=== PATIENT | female | born 1960 | race Caucasian/White ===

== ENCOUNTER 2020-10-24 09:55 | Outpatient (CLI) | payer OTHER, SELFPAY ==
--- NOTE | 2020-10-24 11:30 | NEURO_ITS ---
Impression: # Complains of numbness of hands. # Right Carpal Tunnel Syndrome, sensory more than motor. # No ulnar neuropathy. # Normal needle/EMG exam. Nerve Conduction Studies Anti Sensory Summary Table Stim Site NR Peak (ms) P-T Amp (?V) Site1 Site2 Delta-P (ms) Dist (cm) Dustin (m/s) Left Median Anti Sensory (2-3nd Digit) Wrist 3.7 74.2 Wrist 2-3nd Digit 3.7 14.0 38 Wrist 3.9 62.3 Wrist 2-3nd Digit 3.7 14.0 38 Right Median Anti Sensory (2-3nd Digit) Wrist 4.8 25.3 Wrist 2-3nd Digit 4.8 14.0 29 Wrist 5.3 38.8 Wrist 2-3nd Digit 4.8 14.0 29 Left Radial Anti Sensory (Base 1st Digit) Wrist 1.9 40.3 Wrist Base 1st Digit 1.9 0.0 Right Radial Anti Sensory (Base 1st Digit) Wrist 2.1 22.5 Wrist Base 1st Digit 2.1 0.0 Left Ulnar Anti Sensory (5th Digit) Wrist 2.4 62.3 Wrist 5th Digit 2.4 14.0 58 Right Ulnar Anti Sensory (5th Digit) Wrist 2.3 71.5 Wrist 5th Digit 2.3 14.0 61 Motor Summary Table Stim Site NR Onset (ms) O-P Amp (mV) Site1 Site2 Delta-0 (ms) Dist (cm) Dustin (m/s) Left Median Motor (Abd Poll Brev) Wrist 3.3 3.2 Elbow Wrist 5.2 26.0 50 Elbow 8.5 2.4 Right Median Motor (Abd Poll Brev) Wrist 3.5 3.3 Elbow Wrist 4.2 26.0 62 Elbow 7.7 4.7 Left Ulnar Motor (Abd Dig Minimi) Wrist 2.3 8.4 A Elbow Wrist 4.7 27.0 57 A Elbow 7.0 7.2 Right Ulnar Motor (Abd Dig Minimi) Wrist 2.3 9.7 A Elbow Wrist 4.3 25.0 58 A Elbow 6.6 9.0 F Wave Studies NR F-Lat (ms) L-R F-Lat (ms) Left Median (Mrkrs) (Abd Poll Brev) 28.31 0.65 Right Median (Mrkrs) (Abd Poll Brev) 27.66 0.65 Left Ulnar (Mrkrs) (Abd Dig Min) 26.78 0.10 Right Ulnar (Mrkrs) (Abd Dig Min) 26.88 0.10 EMG Side Muscle Nerve Root Ins Act Fibs Amp Dur Recrt Comment Right 1stDorInt Ulnar C8-T1 Nml Nml Nml Nml Nml Right Ext Indicis Radial (Post Int) C7-8 Nml Nml Nml Nml Nml Right Ext Digitorum Radial (Post Int) C7-8 Nml Nml Nml Nml Nml Right BrachioRad Radial C5-6 Nml Nml Nml Nml Nml Right PronatorTeres Median C6-7 Nml Nml Nml Nml Nml Right Abd Poll Brev Median C8-T1 Nml Nml Nml Nml Nml Left 1stDorInt Ulnar C8-T1 Nml Nml Nml Nml Nml Left Ext Indicis Radial (Post Int) C7-8 Nml Nml Nml Nml Nml Left Ext Digitorum Radial (Post Int) C7-8 Nml Nml Nml Nml Nml Left BrachioRad Radial C5-6 Nml Nml Nml Nml Nml Left PronatorTeres Median C6-7 Nml Nml Nml Nml Nml Left Abd Poll Brev Median C8-T1 Nml Nml Nml Nml Nml Right ABD Dig Min Ulnar C8-T1 Nml Nml Nml Nml Nml Right Biceps Musculocut C5-6 Nml Nml Nml Nml Nml Right Brachialis Musculocut C5-6 Nml Nml Nml Nml Nml Right Triceps Radial C6-7-8 Nml Nml Nml Nml Nml Left ABD Dig Min Ulnar C8-T1 Nml Nml Nml Nml Nml Left Biceps Musculocut C5-6 Nml Nml Nml Nml Nml Left Brachialis Musculocut C5-6 Nml Nml Nml Nml Nml Left Triceps Radial C6-7-8 Nml Nml Nml Nml Nml MTDD
== END 2020-10-24 09:56 | disposition home or self-care (01) ==
PROVIDERS: PCP Family Medicine; Visit Provider Nurse Practitioner Family
DX: R20.2 Paresthesia of skin (principal); G56.01 Carpal tunnel syndrome, right upper limb
CPT/HCPCS: 95886; 95911

== ENCOUNTER 2021-06-13 11:16 | Outpatient (CLI) | payer OTHER, SELFPAY ==
--- NOTE | 2021-06-13 11:19 | ECG_ITS ---
Measurements Intervals [place] Rate: 63 P: 57 AL: 155 QRS: 61 QRSD: 85 T: 59 QT: 413 QTc: 423 Interpretive Statements SINUS RHYTHM BASELINE WANDER- II, III, AVF NORMAL ECG Electronically Signed On 06-13-2021 13:03:54 CDT by Orlando Ramírez D.O.
== END 2021-06-13 11:17 | disposition home or self-care (01) ==
LOC: CHSCARD 11:19
PROVIDERS: PCP Family Medicine; Visit Provider Nurse Practitioner Family
DX: Z01.818 Encounter for other preprocedural examination (principal)
CPT/HCPCS: 93005

== ENCOUNTER 2022-10-17 08:05 | Outpatient (CLI) | payer OTHER, SELFPAY ==
[2022-10-17 08:21] LABS: Hematocrit 41.2 % (35.0-49.0); Hemoglobin 13.4 g/dL (12.0-15.0); Mean Corpuscular HGB Conc 32.5 g/dL (32.0-36.0); Mean Corpuscular Hemoglobin 27.6 pg (27.0-31.0); Mean Corpuscular Volume 84.9 fL (78.0-102.0); Mean Platelet Volume 10.6 fl (9.2-11.8); Platelet Count Result 276 K/mm3 (150-420); Red Blood Count 4.85 M/mm3 (4.20-5.40); Red Cell Distribution Width 13.1 % (11.6-14.4); White Blood Count 9.9 K/mm3 (4.8-10.8)
[2022-10-17 08:26] LABS: Creatinine Urine 239.19 mg/dL (40-278); MALB Creatinine Ratio 11.3 mg/g (0-30); Microalbumin Urine Random 27.2 mg/L
[2022-10-17 09:24] LABS: Alanine Aminotransferase 32 U/L (14-59); Albumin Level 4.2 g/dL (3.4-5.0); Alkaline Phosphatase 96 U/L (46-116); Anion Gap 11 mmol/L (8-16); Aspartate Amino Transferase 23 U/L (15-37); Bilirubin,Total 0.4 mg/dL (0.00-1.00); Blood Urea Nitrogen 11 mg/dL (7-18); Calcium 8.9 mg/dL (8.5-10.1); Carbon Dioxide 27 mmol/L (21-32); Chloride 104 mmol/L (98-108); Cholesterol 136 mg/dL (0-200); Estimated Glomerular Filt Rate > 60; Glucose 186 mg/dL (70-99); HDL Direct 28 mg/dL (40-60); LDL Cholesterol Calculated 52 mg/dL (<130); Osmolality Calculated 298 mOsm/kg (285-295); Potassium 4.1 mmol/L (3.5-5.1); Sodium 142 mmol/L (136-145); Thyroid Stimulating Hormone 1.36 uIU/mL (0.36-3.74); Total Protein 7.2 g/dL (6.4-8.2); Triglycerides 278 mg/dL (0-150)
== END 2022-10-17 08:06 | disposition home or self-care (01) ==
PROVIDERS: PCP Nurse Practitioner Family; Visit Provider Nurse Practitioner Family
DX: E78.5 Hyperlipidemia, unspecified (principal); Z96.41 Presence of insulin pump (external) (internal); Z13.29 Encounter for screening for other suspected endocrine disorder; E11.9 Type 2 diabetes mellitus without complications; I10 Essential (primary) hypertension
CPT/HCPCS: 36415; 80053; 80061; 82043; 84443; 85027

== ENCOUNTER 2022-10-23 07:52 | Outpatient (CLI) | payer OTHER, SELFPAY ==
--- NOTE | ~2022-10-23 | MM_ITS ---
EXAMINATION: MM screening kath BI w devon HISTORY: Screening mammogram TECHNIQUE: Craniocaudal and mediolateral oblique 3-D tomosynthesis images were obtained and synthetic 2-D images were generated. CAD analysis was submitted and interpreted. COMPARISON: 02/09/2009, 03/27/2010 bilateral screening mammogram examinations BREAST PARENCHYMAL COMPOSITION: FINDINGS: Stable mild fibroglandular asymmetry in the lower inner quadrant of the right breast. Occas ional benign calcifications. There is no evidence of suspicious mass, calcification, or architectural distortion to suggest malignancy in either breast. There has been no suspicious interval change. IMPRESSION: 1. No mammographic evidence of malignancy. 2. Recommend routine screening mammography in one year. BI-RADS Category 2: Benign finding(s). Reviewed, dictated and finalized at location A. NG CARRIER
== END 2022-10-23 07:53 | disposition home or self-care (01) ==
LOC: CHSIMG 07:54
PROVIDERS: PCP Nurse Practitioner Family; Visit Provider Nurse Practitioner Family
DX: Z12.31 Encounter for screening mammogram for malignant neoplasm of breast (principal)
CPT/HCPCS: 77063; 77067

== ENCOUNTER 2022-12-31 07:48 | Outpatient (CLI) | payer OTHER, SELFPAY ==
--- NOTE | ~2022-12-31 | US_ITS ---
EXAMINATION: US abdomen complete DATE: 12/31/2022 08:21 INDICATION: Unspecified abdominal pain TECHNIQUE: Multiple grayscale and Doppler ultrasound images of the abdomen were obtained. COMPARISON: None available FINDINGS: The head and body of the pancreas are normal. The pancreatic tail is obscured by bowel gas. The liver demonstrates increased echogenicity, heterogenous echotexture, and decreased through trans mission. No surface nodularity. Normal hepatopetal flow in the main portal vein. The gallbladder is n ormal with no abnormal wall thickening, pericholecystic fluid or stones. The dilated common bile duct measures 10 mm. There was no sonographic Ni sign. The visualized portions of the aorta and infer ior vena cava are normal. The spleen is normal in appearance and measures 8.0 cm. The right kidney measures 10.8 x 3.5 x 4.4 cm . The left kidney measures 10.7 x 4.5 x 6.4 cm. The kidneys demonstrate normal parenchymal echogenici ty. There is no hydronephrosis. IMPRESSION: 1. Dilated common bile duct of unclear etiology. Stone or stricture are considerations however neithe r are visualized. Consider MRCP. 2. Diffuse hepatic steatosis. Reviewed, dictated and finalized at location B. IMPRESSION: 1. Dilated common bile duct of unclear etiology. Stone or stricture are conside rations however neither are visualized. Consider MRCP. 2. Diffuse hepatic steatosis.
== END 2022-12-31 07:49 | disposition home or self-care (01) ==
LOC: CHSIMG 07:49
PROVIDERS: PCP Family Medicine; Visit Provider Nurse Practitioner Family
DX: R10.9 Unspecified abdominal pain (principal); K76.0 Fatty (change of) liver, not elsewhere classified
CPT/HCPCS: 76700

== ENCOUNTER 2023-01-03 08:18 | Outpatient (CLI) | payer OTHER, SELFPAY ==
--- NOTE | ~2023-01-03 | MR_ITS ---
EXAMINATION: MR MRCP wo/w con/w 3D wo ind DATE: 01/03/2023 11:50 INDICATION: Dilated common bile duct. Nausea and vomiting. TECHNIQUE: Magnetic resonance imaging (MRI) of the abdomen was performed without and with 20 mL Multi Rema intravenous contrast. Sequences included coronal T2-weighted FS FSE, coronal T2-weighted FSE, a xial T1-weighted LAVA, coronal FS FIESTA, axial dual-echo T1-weighted SPGR, coronal lava-FLEX, sagitt al T2-weighted FSE, axial T2-weighted FSE, and axial DWI. Thick-slab T2-weighted FSE images were obta ined for magnetic resonance cholangiopancreatography (MRCP). Maximum intensity projection 3-D reconst ructions of the volumetric data were created by the technologist. Postcontrast sequences included cor onal LAVA-flex and time course of axial T1-weighted LAVA. COMPARISON: Ultrasound abdomen 12/31/2022 FINDINGS: ABDOMEN MRI: There is diffuse hepatic steatosis. There is a 5 mm cyst in the liver. The gallbladder, spleen, pancreas, adrenal glands, and kidneys are normal. There are no dilated loops of bowel. There are no pathologically enlarged lymph nodes. There is no free intraperitoneal fluid. ABDOMEN MRCP: The common duct is dilated to 10 mm. No choledocholithiasis. IMPRESSION: 1. Mildly dilated common duct. No choledocholithiasis. 2. Diffuse hepatic steatosis. Reviewed, dictated and finalized at location A.
== END 2023-01-03 08:19 | disposition home or self-care (01) ==
LOC: CHSIMG 08:20
PROVIDERS: PCP Family Medicine; Visit Provider Nurse Practitioner Family
DX: K83.8 Other specified diseases of biliary tract (principal); K76.0 Fatty (change of) liver, not elsewhere classified
CPT/HCPCS: 74183; 76376; A9577

== ENCOUNTER 2023-02-03 08:19 | Outpatient (CLI) | payer OTHER, SELFPAY ==
[2023-02-03 08:40] LABS: Hematocrit 39.3 % (35.0-49.0); Mean Corpuscular HGB Conc 33.1 g/dL (32.0-36.0); Mean Corpuscular Volume 84.7 fL (78.0-102.0); Mean Platelet Volume 10.8 fl (9.2-11.8); Platelet Count Result 246 K/mm3 (150-420); Red Blood Count 4.64 M/mm3 (4.20-5.40); Red Cell Distribution Width 13.2 % (11.6-14.4); White Blood Count 8.2 K/mm3 (4.8-10.8)
[2023-02-03 09:20] LABS: Alanine Aminotransferase 57 U/L (14-59); Albumin Level 3.9 g/dL (3.4-5.0); Alkaline Phosphatase 96 U/L (46-116); Amylase 26 U/L (25-115); Anion Gap 10 mmol/L (8-16); Aspartate Amino Transferase 44 U/L (15-37); Bilirubin,Total 0.4 mg/dL (0.00-1.00); Blood Urea Nitrogen 14 mg/dL (7-18); Calcium 9.2 mg/dL (8.5-10.1); Carbon Dioxide 26 mmol/L (21-32); Chloride 104 mmol/L (98-108); Estimated Glomerular Filt Rate > 60; Glucose 219 mg/dL (70-99); Lipase 47 U/L (16-77); Osmolality Calculated 297 mOsm/kg (285-295); Potassium 4.7 mmol/L (3.5-5.1); Sodium 140 mmol/L (136-145); Total Protein 6.8 g/dL (6.4-8.2)
[2023-02-07 10:02] LABS: Immunoglobulin A 83 mg/dL (47-310); TTG IGA AB <1.0 U/mL (<15.0)
== END 2023-02-03 08:20 | disposition home or self-care (01) ==
LOC: CHSLAB 08:22
PROVIDERS: PCP Family Medicine; Visit Provider Nurse Practitioner Family
DX: R11.2 Nausea with vomiting, unspecified (principal); K83.8 Other specified diseases of biliary tract; K76.0 Fatty (change of) liver, not elsewhere classified; R19.7 Diarrhea, unspecified
CPT/HCPCS: 36415; 80053; 82150; 82784; 83516; 83690; 83993; 85027; 87045; 87177; 87209; 87427; 87493

== ENCOUNTER 2023-02-16 07:43 | Outpatient (CLI) | payer OTHER, SELFPAY ==
--- NOTE | ~2023-02-16 | NM_ITS ---
EXAMINATION: NM hepatobiliary w pharm DATE: 02/16/2023 11:32 CDT INDICATION: Nausea with vomiting COMPARISON: Ultrasound dated 12/31/2022 TECHNIQUE: 5.4 millicuries Choletec was administered intravenously. Scintigraphic images of the abdo men were obtained for one hour. 1.3 mcg of cholecystokinin was then administered with additional 30 m inute imaging of the abdomen. Gallbladder ejection fraction was calculated by the technologist. FINDINGS: There is homogeneous tracer uptake by the liver. Common bile duct activity is seen at 5-10 minutes, and gallbladder activity by 5-10 minutes. There is radiotracer activity in the proximal sm all bowel loops by 10-15 minutes. Following administration of cholecystokinin, gallbladder ejection fraction is calculated to be 82. IMPRESSION: 1. Patent cystic duct and common bile duct. No scintigraphic evidence for acute cholecystitis. 2. Gallbladder ejection fraction at 82 (normal is 35% or greater). Reviewed, dictated and finalized at location [] IMPRESSION: 1. Patent cystic duct and common bile duct. No scintigraphic evidence for acu te cholecystitis. 2. Gallbladder ejection fraction at 82 (normal is 35% or greater).
== END 2023-02-16 07:44 | disposition home or self-care (01) ==
PROVIDERS: PCP Family Medicine; Visit Provider Nurse Practitioner Family
DX: R11.2 Nausea with vomiting, unspecified (principal); K83.8 Other specified diseases of biliary tract
CPT/HCPCS: 78227; A9537; J2805

== ENCOUNTER 2023-03-06 05:21 | Day surgery (SDC) | payer OTHER, SELFPAY ==
[2023-02-20 10:09] VITALS: BMI 26.3
[2023-03-06 10:23] VITALS: BP 139/75; PULSE 80; RESP 16; TEMP 36.3; O2SAT 99; BMI 25.5
[2023-03-06 10:30] LABS: Glucose Point of Care 169 mg/dl (65-105)
[2023-03-06] MEDS: LACTATED RINGERS 1,000 ML 150 ML IV CONT (10:35)
--- NOTE | 2023-03-06 10:49 | WPDANESEPPF ---
Anes - Initial Pre Proc Eval Procedure: Operation Date: 03/06/23 11:15 Proposed Procedures p Colonoscopy - Terry Rosado MD Date/Time: 03/06/23 10:49 Surgeon: Terry Rosado MD Pre Op Diagnosis: change in bowel habits, diarrhea Patient Data Age: 62 Gender: F Height: 1.6 m Weight: 65.5 kg Last Vital Signs Temp 97.3 F L 03/06/23 10:23 Pulse 80 03/06/23 10:23 Resp 16 03/06/23 10:23 BP 139/75 03/06/23 10:23 Pulse Ox 99 03/06/23 10:23 O2 Del Method Room Air 03/06/23 10:23 Allergies Allergy/AdvReac Type Severity Reaction Status Date / Time No Known Allergies Allergy Verified 03/06/23 10:22 Home Medications Medication Instructions Recorded Confirmed Type aspirin 81 mg tablet,delayed 81 mg PO DAILY 07/14/19 03/06/23 History release (Adult Low Dose Aspirin) escitalopram oxalate 10 mg tablet 10 mg PO DAILY #90 tabs 12/19/22 03/06/23 Rx (Lexapro) lisinopril 20 mg tablet 20 mg PO DAILY #90 tabs 12/19/22 03/06/23 Rx blood-glucose meter,continuous #1 ea 12/26/22 03/06/23 Rx (Dexcom G7 Drill Operator) blood-glucose sensor (Dexcom G7 #1 ea 12/26/22 03/06/23 Rx Sensor device) ubidecarenone-omega 3-vit E 25 1 cap PO DAILY 01/29/23 03/06/23 History mg-150 (90-60) mg-200 unit capsule (Co J-49-Lviawrs E-Fish Oil) atorvastatin 40 mg tablet 80 mg PO DAILY #60 tabs 01/30/23 03/06/23 Rx metformin 500 mg tablet,extended 500 mg PO BID #60 tabs 01/30/23 03/06/23 Rx release 24 hr semaglutide 1 mg/dose (4 mg/3 mL) 1 mg (0.75 mL) subcut WEEKLY #3 mL 02/12/23 03/06/23 Rx subcutaneous pen injector (Ozempic) [id number] See Rx Instructions PO .COMPLEX 02/16/23 03/06/23 Rx 36,000-114,000-180,000 unit #240 caps capsule,delay rel (Creon) Laboratory Tests 03/06/23 10:27 POC Capillary Glucose 169 H mg/dl (65-105) Patient hx anesthesia problems: none Family hx anesthesia problems: none Results Review: All pre-operative results and documents have been reviewed as part of the pre-operative evaluation. [facility]LY [facility], [facility] Past Medical History Medical History (Updated 01/29/23 @ 08:59 by ANGELA Pop) Abnormal MRI, shoulder Carpal tunnel syndrome Diarrhea Hemoglobin A1c greater than 9.0% A1C 9.0 on 07/03/20 Liver cyst Nausea and vomiting Surgical History Surgical History H/O rotator cuff surgery Family History Family History Mother Family history of lung cancer Father Acute myocardial infarction Sibling Diabetes mellitus Hypertension Other Family history of hypercholesterolemia Social History Social History Smoking status: Never smoker Second hand tobacco smoke exposure: Yes Alcohol intake: current Drinks per week: 0 Alcohol use details: rarely Substance use: never Substance use type: does not use Lack of Transportation: YES Lack of Food: Never True Current Housing: I Have Housing Concerned About Future Housing: No Difficulty Paying Gas/Electric Bills: No Difficulty Paying for Meds: No Currently Unemployed: No Education: Associate Degree Difficulty w/ Childcare or Family Care: No Living arrangements: with family Occupation/Education: occupation Additional occupation/education comments: Pt [employer] Gender identity (if verbalized by the patient): Female Sexual Orientation (if Verbalized by the Patient): Straight or Heterosexual Spiritual care concerns: No Anes - Eval Final PreProcedure Day of Procedure 03/06/23 10:49 Patient weight: normal Heart: regular rate and rhythm Lungs: clear to auscultation Airway: Mallampati scale class II Neurological: alert and oriented Last oral intake: >/= 8 hours ASA classification: III Emergent: no Anesthetic plan: proceed An
--- NOTE | 2023-03-06 11:17 | PM.HPGS ---
History of Present Illness History of Present Illness Consent: Risks, benefits, and alternatives have been discussed and questions answered. Patient agrees to proceed with procedure. Chief complaint: change in bowel habits, History of colon polyp. Narrative: Nandini Yanes is a 62 year old female Presents for colonoscopy. Patient reports intermittent diarrhea that will typically start shortly after eating. She does not know any specific foods that cause this. Diarrhea typically is short lived. She denies any bleeding. She has had intermittent right upper quadrant abdominal pain. Etiology unclear. Recent workup unremarkable. Endoscopic ultrasound revealed mildly dilated common bile duct which was attributed to papillary stenosis. She apparently had a benign liver cyst. Patient reports she previously had a colon polyp 5 years ago and presents today for screening colonoscopy. Review of Systems Review of Systems: Review of systems noncontributory. [facility] Past Medical History Medical History (Updated 03/06/23 @ 11:20 by Terry Rosado MD) Abnormal MRI, shoulder Carpal tunnel syndrome Diarrhea Hemoglobin A1c greater than 9.0% A1C 9.0 on 07/03/20 Liver cyst Nausea and vomiting Surgical History Surgical History H/O rotator cuff surgery Family History Family History Mother Family history of lung cancer Father Acute myocardial infarction Sibling Diabetes mellitus Hypertension Other Family history of hypercholesterolemia Social History Social History Smoking status: Never smoker Second hand tobacco smoke exposure: Yes Alcohol intake: current Drinks per week: 0 Alcohol use details: rarely Substance use: never Substance use type: does not use Lack of Transportation: YES Lack of Food: Never True Current Housing: I Have Housing Concerned About Future Housing: No Difficulty Paying Gas/Electric Bills: No Difficulty Paying for Meds: No Currently Unemployed: No Education: Associate Degree Difficulty w/ Childcare or Family Care: No Living arrangements: with family Occupation/Education: occupation Additional occupation/education comments: Pt access [employer] Gender identity (if verbalized by the patient): Female Sexual Orientation (if Verbalized by the Patient): Straight or Heterosexual Spiritual care concerns: No Meds Home Medications and Allergies Home Medications Medication Instructions Recorded Confirmed Type aspirin 81 mg tablet,delayed 81 mg PO DAILY 07/14/19 03/06/23 History release (Adult Low Dose Aspirin) escitalopram oxalate 10 mg tablet 10 mg PO DAILY #90 tabs 12/19/22 03/06/23 Rx (Lexapro) lisinopril 20 mg tablet 20 mg PO DAILY #90 tabs 12/19/22 03/06/23 Rx blood-glucose meter,continuous #1 ea 12/26/22 03/06/23 Rx (Dexcom G7 Picc Nurse) blood-glucose sensor (Dexcom G7 #1 ea 12/26/22 03/06/23 Rx Sensor device) ubidecarenone-omega 3-vit E 25 1 cap PO DAILY 01/29/23 03/06/23 History mg-150 (90-60) mg-200 unit capsule (Co C-50-Ykioezj E-Fish Oil) atorvastatin 40 mg tablet 80 mg PO DAILY #60 tabs 01/30/23 03/06/23 Rx metformin 500 mg tablet,extended 500 mg PO BID #60 tabs 01/30/23 03/06/23 Rx release 24 hr semaglutide 1 mg/dose (4 mg/3 mL) 1 mg (0.75 mL) subcut WEEKLY #3 mL 02/12/23 03/06/23 Rx subcutaneous pen injector (Ozempic) [id number] See Rx Instructions PO .COMPLEX 02/16/23 03/06/23 Rx 36,000-114,000-180,000 unit #240 caps capsule,delay rel (Creon) Allergies Allergy/AdvReac Type Severity Reaction Status Date / Time No Known Allergies Allergy Verified 03/06/23 10:22 Vital Signs Vital Signs - 24 hr 03/06/23 10:23 Temperature 97.3 F L Pulse Rate 80 Respiratory Rate
[2023-03-06 11:41] VITALS: BP 146/71; PULSE 81; RESP 16; O2SAT 98
[2023-03-06 11:51] VITALS: BP 145/74; PULSE 75; RESP 22; O2SAT 99
[2023-03-06 12:01] VITALS: BP 133/67; PULSE 71; RESP 19; O2SAT 100
== END 2023-03-06 12:10 | disposition home or self-care (01) ==
PROVIDERS: PCP Family Medicine; Visit Provider Internal Medicine Gastroenterology
PROC: 0DJD8ZZ Inspection of Lower Intestinal Tract, Via Natural or Artificial Opening Endoscopic (ICD-10-PCS; CPT 45378; principal; 2023-03-06 11:15)
DX: R19.4 Change in bowel habit (principal); Z86.010 Personal history of colon polyps; K64.8 Other hemorrhoids
CPT/HCPCS: 45380; 82948; 88305; J2704; J7120

== ENCOUNTER 2023-12-24 07:20 | Outpatient (CLI) | payer OTHER, SELFPAY ==
--- NOTE | ~2023-12-24 | MM_ITS ---
EXAMINATION: MM screening kath BI w devon HISTORY: Screening TECHNIQUE: Craniocaudal and mediolateral oblique 3-D tomosynthesis images were obtained and synthetic 2-D images were generated. CAD analysis was submitted and interpreted. COMPARISON: 05/24/2013 BREAST PARENCHYMAL COMPOSITION: Not dense: There are scattered areas of fibroglandular density. FINDINGS: There is no evidence of suspicious mass, calcification, or architectural distortion to sugg est malignancy in either breast. There has been no suspicious interval change. IMPRESSION: 1. No mammographic evidence of malignancy. 2. Recommend routine screening mammography in one year. BI-RADS Category 1: Negative Reviewed, dictated and finalized at location B.
== END 2023-12-24 07:21 | disposition home or self-care (01) ==
PROVIDERS: PCP Family Medicine; Visit Provider Obstetrics & Gynecology
DX: Z12.31 Encounter for screening mammogram for malignant neoplasm of breast (principal)
CPT/HCPCS: 77063; 77067

== ENCOUNTER 2024-04-11 08:17 | Outpatient (CLI) | payer OTHER, SELFPAY ==
[2024-04-11 08:34] LABS: Hematocrit 42.6 % (35.0-49.0); Hemoglobin 14.1 g/dL (12.0-15.0); Mean Corpuscular HGB Conc 33.1 g/dL (32-36); Mean Corpuscular Hemoglobin 27.6 pg (27.0-31.0); Mean Corpuscular Volume 83.4 fL (78.0-102.0); Mean Platelet Volume 11.1 fl (9.2-11.8); Platelet Count Result 250 K/mm3 (150-420); Red Blood Count 5.11 M/mm3 (4.20-5.40); Red Cell Distribution Width 13.1 % (11.6-14.4); White Blood Count 7.8 K/mm3 (4.8-10.8)
[2024-04-12 17:19] LABS: Alanine Aminotransferase 26 U/L (14-59); Albumin Level 4.1 g/dL (3.4-5.0); Alkaline Phosphatase 106 U/L (46-116); Anion Gap 13 mmol/L (4-12); Aspartate Amino Transferase 41 U/L (15-37); Bilirubin,Total 0.5 mg/dL (0.00-1.00); Blood Urea Nitrogen 18 mg/dL (7-18); Calcium 9.6 mg/dL (8.5-10.1); Carbon Dioxide 25 mmol/L (21-32); Chloride 99 mmol/L (98-108); Cholesterol 172 mg/dL (0-200); Estimated Glomerular Filt Rate > 60; Glucose 300 mg/dL (70-99); HDL Direct 28 mg/dL (40-60); Osmolality Calculated 296 mOsm/kg (285-295); Potassium 4.3 mmol/L (3.5-5.1); Sodium 137 mmol/L (136-145); Thyroid Stimulating Hormone 2.04 uIU/mL (0.36-3.74); Total Protein 7.2 g/dL (6.4-8.2)
[2024-04-12 17:21] LABS: LDL Cholesterol Calculated 37 mg/dL (<130); Triglycerides 535 mg/dL (0-150)
[2024-04-12 17:22] LABS: LDL Cholesterol Direct 58 mg/dL (0-130)
[2024-04-12 18:17] LABS: Creatinine Urine 173.89 mg/dL (40-278); MALB Creatinine Ratio 10.1 mg/g (0-30); Microalbumin Urine Random 17.7 mg/L
== END 2024-04-11 08:18 | disposition home or self-care (01) ==
LOC: CHSLAB 08:20
PROVIDERS: PCP Nurse Practitioner Family; Visit Provider Nurse Practitioner Family
DX: E11.9 Type 2 diabetes mellitus without complications (principal); Z96.41 Presence of insulin pump (external) (internal); I10 Essential (primary) hypertension; E78.5 Hyperlipidemia, unspecified; K76.0 Fatty (change of) liver, not elsewhere classified; Z13.29 Encounter for screening for other suspected endocrine disorder
CPT/HCPCS: 36415; 80053; 80061; 82043; 83721; 84443; 85027

== ENCOUNTER 2024-08-22 13:37 | Outpatient (CLI) | payer OTHER, SELFPAY ==
[2024-08-22 13:47] LABS: Add Urine Microscopic? NO; Appearance Urine Clear (Clear); Bilirubin Urine Negative (Negative); Blood Urine Negative (Negative); Color Urine Light Yellow (Yellow); Glucose Urine UA 3+ (Negative); Ketones Urine Negative (Negative); Leukocyte Esterase Ur Negative LEU/UL (Negative); Nitrate Urine Negative (Negative); Protein Urine Negative (Negative); Specific Grav Ur 1.025 (1.010-1.020); Urobilinogen Urine 0.2 mg/dL (0.2-1.0)
== END 2024-08-22 13:38 | disposition home or self-care (01) ==
LOC: CHSLAB 13:38
PROVIDERS: PCP Family Medicine
DX: R30.0 Dysuria (principal)
CPT/HCPCS: 81003

== ENCOUNTER 2024-09-12 10:20 | Emergency (ER) | payer OTHER, SELFPAY ==
--- NOTE | ~2024-09-12 | XR_ITS ---
EXAMINATION: XR chest 1V portable DATE: 09/12/2024 10:36 INDICATION: Cough. Fatigue. TECHNIQUE: A single frontal view of the chest was obtained. COMPARISON: Chest single view 01/03/2022 FINDINGS: There is no pneumonia, pleural effusion or pneumothorax. The heart size is normal. There is a suture anchor in right humeral head. IMPRESSION: 1. No acute cardiopulmonary disease. Reviewed, dictated and finalized at location A. E[employer]OU[employer]LISM
[2024-09-12 10:20] VITALS: BP 166/82; PULSE 79; RESP 20; TEMP 37.1; O2SAT 100
--- NOTE | 2024-09-12 10:25 | WPDEDEXPGENP ---
HPI - General Ped General Chief complaint: Upper Respiratory Infection Stated complaint: cough Time Seen by Provider: 09/12/24 10:24 Source: patient and family Mode of arrival: ambulatory Limitations: no limitations History of Present Illness HPI narrative: 64 years old white female with history of diabetes, hypertension, hyperlipidemia on baby aspirin once a day, came to the ED from home by private car complaining of coughing, ear aches, sore throat, body aches started 5 days ago. Patient report 1 of her grandkids were sick few days ago. Currently patient denying any fever or chills or shortness of breath. Patient does not smoke cigarettes. Drinks alcohol occasionally Related Data Home Medications ?Medication ?Instructions ?Recorded ?Confirmed ?Last Taken ?Type aspirin 81 mg tablet,delayed 81 mg PO DAILY 07/14/19 07/15/24 Unknown History release (Adult Low Dose Aspirin) ubidecarenone-omega 3-vit E 25 1 cap PO DAILY 01/29/23 07/15/24 Unknown History mg-150 (90-60) mg-200 unit capsule (Co F-02-Ndyoihf E-Fish Oil) Allergies Allergy/AdvReac Type Severity Reaction Status Date / Time No Known Allergies Allergy Verified 07/15/24 08:07 Pediatric Review of Systems All systems ED: reviewed and negative except as stated PMFSH Past Medical History Medical History LGSIL Pap smear of vagina Vaginal dryness RUQ pain Change in bowel habit Liver cyst Nausea and vomiting Diarrhea Dilated bile duct Abdominal pain Trapezius muscle strain Neck Pain Vaginal bleeding Pre-employment examination Post-op pain Pre-op testing Abnormal MRI, shoulder Right shoulder injury BMI 25.0-25.9,adult Carpal tunnel syndrome Hemoglobin A1c greater than 9.0% A1C 9.0 on 07/03/20 Pain in wrist Exposure to COVID-19 virus Abdominal pain Acute pain of right knee Surgical History Surgical History H/O gynecological procedure tubal ligation H/O rotator cuff surgery Family History Family History Mother Family history of lung cancer Father Acute myocardial infarction Sibling Diabetes mellitus Hypertension Other Family history of hypercholesterolemia Social History Social History Smoking status: Never smoker Second hand tobacco smoke exposure: Yes Alcohol intake: current Drinks per week: 0 Alcohol use details: rarely Substance use: never Substance use type: does not use Lack of Transportation: No Lack of Food: Never True Current Housing: I Have Housing Concerned About Future Housing: No Difficulty Paying Gas/Electric Bills: No Difficulty Paying for Meds: No Currently Unemployed: No Education: Associate Degree Difficulty w/ Childcare or Family Care: No Living arrangements: with family Occupation/Education: occupation Additional occupation/education comments: Pt access [employer] Gender identity (if verbalized by the patient): Female Sexual Orientation (if Verbalized by the Patient): Straight or Heterosexual Spiritual care concerns: No Pediatric Exam Narrative: Physical exam: General appearance: Well-developed, well-nourished Skin: Normal color Head: Normocephalic, nontraumatic Eyes: Clear conjunctiva ENT: Oropharynx normal, ears normal, nose normal Neck: Supple, nontender Chest and respiratory: Airway patent, no respiratory distress, no accessory muscle use Heart: Regular rate/rhythm Abdomen: Soft, nontender, no organomegaly, quiet bowel sounds Vascular: Normal peripheral pulses, normal capillary refill. Musculoskeletal: Normal range of motion, nontender back Neurologic: Alert and oriented ?3, RIGHT OF WAY CLEARER is normal as tested, no gross motor deficit Course Vital Signs Vital signs: Vital Signs Temperature 37.1 C 09/12/24 10:20 Pulse Rate 79 09/12/24 10:20 Respiratory Rate 20 09/12/24 10:20 Blood Pressure 166/82 H 09/12/24 10:20 Pulse Oximetry 09/12/24 10:20 Oxygen Delivery Room Air 09/12/24 10:20 Temperature 37.1 C 09/12/24 10:20 Pulse Rate 79 09/12/24 10:20 Respiratory Rate 20 09/12/24 10:20 Blood Pressure 166/82 H 09/12/24 10:20 Pulse Oximetry 100 09/12/24 10:20 Oxygen Delivery Room Air 09/12/24 10:20 Medical Decision Making [facility] Narrative Medical decision making narrative: patient presents with upper respiratory viral infection like symptoms Vital signs are stable Patient tested negative for COVID, flu and RSV Chest x-ray showed no acute abnormalities Upper respiratory viral infection is my concern. Differential Diagnosis Differential Diagnosis: As above Vital Signs Vital Signs: Vital Signs Temperature 37.1 C 09/12/24 10:20 Pulse Rate 79 09/12/24 10:20 Respiratory Rate 20 09/12/24 10:20 Blood Pressure 166/82 H 09/12/24 10:20 Pulse Oximetry 100 09/12/24 10:20 Oxygen Delivery Room Air 09/12/24 10:20 Temperature 37.1 C 09/12/24 10:20 Pulse Rate 79 09/12/24 10:20 Respiratory Rate 20 09/12/24 10:20 Blood Pressure 166/82 H 09/12/24 10:20 Pulse Oximetry 100 09/12/24 10:20 Oxygen Delivery Room Air 09/12/24 10:20 Lab Data Labs: Lab Results 09/12/24 Range/Units 10:26 Influenza A (RT-PCR) Negative (Negative) Influenza B (RT-PCR) Negative (Negative) RSV (RT-PCR) Negative (Negative) SARS-CoV-2 RNA (RT-PCR) Negative (Negative) Group A Strep (PCR) Not detected (Negative) Discharge Plan Discharge Clinical Impression: Upper respiratory infection, viral Patient Disposition: Home, Self-Care Condition: Stable Instructions: Upper Respiratory Infection (ED) Additional Instructions: Return if symptoms are worsening , call your family physician for appointment, take Tylenol as as needed for aches and pain, continue home medications. If you symptoms are not improving in 5 days contact your family doctor for possible a course of antibiotic Patient Language: Yakut Prescriptions: New benzonatate 200 mg capsule 200 mg PO TID Qty: 30 0RF ipratropium bromide 42 mcg (0.06 %) spray,non-aerosol 2 spray intranasal TID 7 Days Qty: 15 0RF Rx Instructions: administer into each nostril fluticasone propionate [Flonase Allergy Relief] 50 mcg/actuation spray,suspension 2 spray intranasal DAILY Qty: 16 0RF Rx Instructions: administer into each nostril No Action aspirin [Adult Low Dose Aspirin] 81 mg tablet,delayed release (DR/EC) 81 mg PO DAILY Co M-34-Jlginuv E-Fish Oil 25-150-200 mg-mg-unit capsule 1 cap PO DAILY omeprazole 20 mg capsule,delayed release(DR/EC) 20 mg PO DAILY 30 Days Qty: 30 2RF estradiol 0.01 % (0.1 mg/gram) cream 1 g vaginal 2XW Qty: 42.5 6RF Rx Instructions: apply 1 gram every other day for 2 weeks, then continue using twice weekly thereafter. lisinopril 20 mg tablet 20 mg PO DAILY Qty: 90 3RF (DME) Dexcom G7 Bonded Structures Repairer Misc See Rx Instructions .Route Qty: 1 0RF Rx Instructions: As directed (DME) Dexcom G7 Sensor Device See Rx Instructions .Route Qty: 1 0RF Rx Instructions: As directed atorvastatin 80 mg tablet 80 mg PO QHS Qty: 90 3RF cyclobenzaprine 10 mg tablet 10 mg PO .hs PRN (Reason: muscle spasm) Qty: 14 0RF gabapentin 300 mg capsule 300 mg PO QHS Qty: 60 2RF metformin 500 mg tablet extended release 24 hr 500 mg PO BID Qty: 180 1RF Jardiance 25 mg tablet 25 mg PO DAILY Qty: 90 4RF lidocaine 5 % adhesive patch,medicated 1 patch topical DAILY Qty: 30 3RF Rx Instructions: leave on most painful area for up to 12 hrs escitalopram oxalate 10 mg tablet See Rx Instructions .ROUTE .COMPLEX Qty: 90 0RF Dose Instruction: TAKE ONE TABLET BY MOUTH DAILY Rx Instructions: TAKE ONE TABLET BY MOUTH DAILY icosapent ethyl [Vascepa] 1 gram capsule 2 g PO BID Qty: 360 0RF Ozempic 2 mg/dose (8 mg/3 mL) pen injector 2 mg subcut WEEKLY Qty: 3 2RF Follow-up/Referrals: Christopher Ridley MD [Primary Care Provider] - Stand Alone Forms: Work/School Release IP
[2024-09-12 11:10] LABS: Strep Group A RT-PCR NOT DETECTED (Negative)
[2024-09-12 11:15] LABS: Influenza A QL RT-PCR Negative (Negative); Influenza B QL RT-PCR Negative (Negative); RSV RNA, RT-PCR Negative (Negative); SARS-CoV-2 RNA PCR Negative (Negative)
[2024-09-12 11:27] VITALS: BP 117/82; PULSE 82; RESP 20; TEMP 36.8; O2SAT 98
== END 2024-09-12 11:28 | disposition home or self-care (01) ==
LOC: CHSED 11:02
PROVIDERS: Emergency Provider Emergency Medicine; PCP Family Medicine
DX: J06.9 Acute upper respiratory infection, unspecified (principal); E11.9 Type 2 diabetes mellitus without complications; I10 Essential (primary) hypertension; E78.5 Hyperlipidemia, unspecified; Z79.82 Long term (current) use of aspirin; Z20.822 Contact with and (suspected) exposure to COVID-19
CPT/HCPCS: 71045; 87637; 87651; 99283

== ENCOUNTER 2024-12-29 07:55 | Outpatient (CLI) | payer OTHER, SELFPAY ==
--- NOTE | ~2024-12-29 | MM_ITS ---
EXAMINATION: MM screening kath BI w devon HISTORY: Screening TECHNIQUE: Craniocaudal and mediolateral oblique 3-D tomosynthesis images were obtained and synthetic 2-D images were generated. CAD analysis was submitted and interpreted. COMPARISON: Comparison to multiple prior studies sequentially, with oldest reviewed study dated 10/23. BREAST PARENCHYMAL COMPOSITION: Not dense: There are scattered areas of fibroglandular density. FINDINGS: There is no evidence of suspicious mass, calcification, or architectural distortion to sugg est malignancy in either breast. There has been no suspicious interval change. IMPRESSION: 1. No mammographic evidence of malignancy. 2. Recommend routine screening mammography in one year. BI-RADS Category 1: Negative Reviewed, dictated and finalized at location A.
== END 2024-12-29 07:56 | disposition home or self-care (01) ==
LOC: CHSIMG 07:56
PROVIDERS: PCP Family Medicine; Visit Provider Nurse Practitioner Family
DX: Z12.31 Encounter for screening mammogram for malignant neoplasm of breast (principal)
CPT/HCPCS: 77063; 77067

== ENCOUNTER 2025-04-06 10:15 | Emergency (ER) | payer OTHER, SELFPAY ==
--- NOTE | ~2025-04-06 | XR_ITS ---
HISTORY: First metatarsophalangeal joint PAIN /gout/NO TRAUMA COMPARISON: None TECHNIQUE: FINDINGS: No acute fracture or dislocation is appreciated. Degenerative changes noted within the first metatarsophalangeal joint space with joint space narrowin g and sclerosis. The base of the fifth metatarsal is intact. Small calcaneal spur is noted. Ossification of the insertion of the Achilles tendon. IMPRESSION: Joint space narrowing and sclerosis within the first metatarsophalangeal joint space. Degenerative disease, without acute fracture. Reviewed, dictated and finalized at location A. IMPRESSION: Joint space narrowing and sclerosis within the first metatarsophal angeal joint space. Degenerative disease, without acute fracture.
[2025-04-06 10:16] VITALS: BP 137/82; PULSE 86; RESP 16; TEMP 36.6; O2SAT 100
--- NOTE | 2025-04-06 10:27 | ED_ITS ---
HPI - Extremity Injury (Lower) General Chief Complaint: Extremity Injury, Lower Stated Complaint: rt. foot pain Time Seen by Provider: 04/06/25 10:26 Source: patient Mode of arrival: ambulatory Limitations: no limitations History of Present Illness HPI Narrative: 64 years old white female came with pain at the bottom and sides of the metatarsophalangeal joint of the big toe started 2 days ago, getting worse, can not tolerate any touch to that area Or any movement of that joint. Patient denies any fever, chills, nausea, vomiting or any trauma or any new issues. History of diabetes hypertension hyperlipidemia. Related Data Home Medications ?Medication ?Instructions ?Recorded ?Confirmed ?Last Taken ?Type aspirin 81 mg tablet,delayed 81 mg PO DAILY 07/14/19 02/20/25 Unknown History release (Adult Low Dose Aspirin) ubidecarenone-omega 3-vit E 25 1 cap PO DAILY 01/29/23 02/20/25 Unknown History mg-150 (90-60) mg-200 unit capsule (Co L-69-Ysxvify E-Fish Oil) Allergies Allergy/AdvReac Type Severity Reaction Status Date / Time No Known Allergies Allergy Verified 04/06/25 10:18 Review of Systems Review of Systems: All systems reviewed & are unremarkable except as noted in HPI and below PMFSH Past Medical History Medical History Type 2 diabetes mellitus without complication, with snf current use of insulin pump LGSIL Pap smear of vagina Vaginal dryness RUQ pain Change in bowel habit Liver cyst Nausea and vomiting Diarrhea Dilated bile duct Abdominal pain Trapezius muscle strain Neck Pain Vaginal bleeding Pre-employment examination Post-op pain Pre-op testing Abnormal MRI, shoulder Right shoulder injury BMI 25.0-25.9,adult Carpal tunnel syndrome Hemoglobin A1c greater than 9.0% A1C 9.0 on 07/03/20 Pain in wrist Exposure to COVID-19 virus Abdominal pain Acute pain of right knee Surgical History Surgical History H/O gynecological procedure tubal ligation H/O rotator cuff surgery Family History Family History Mother Family history of lung cancer Father Acute myocardial infarction Sibling Diabetes mellitus Hypertension Other Family history of hypercholesterolemia Social History Social History Smoking status: Never smoker Second hand tobacco smoke exposure: Yes Alcohol intake: current Drinks per week: 0 Alcohol use details: rarely Substance use: never Substance use type: does not use Do You Feel Safe in your Home?: Yes Lack of Transportation: No Lack of Food: Never True Current Housing: I Have Housing Concerned About Future Housing: No Difficulty Paying Gas/Electric Bills: No Difficulty Paying for Meds: No Currently Unemployed: No Education: Associate Degree Difficulty w/ Childcare or Family Care: No Living arrangements: with family Occupation/Education: occupation Additional occupation/education comments: Pt access [employer] Gender identity (if verbalized by the patient): Female Sexual Orientation (if Verbalized by the Patient): Straight or Heterosexual Spiritual care concerns: No Exam Narrative: General appearance: Well-developed, well-nourished Skin: Normal color Head: Normocephalic, nontraumatic Chest and respiratory: Airway patent, no respiratory distress, no accessory muscle use Heart: Regular rate/rhythm Vascular: Normal peripheral pulses, normal capillary refill. Musculoskeletal: Right foot exam showing swelling, diffuse tenderness, slightly red of the right metatarsophalangeal joint of the big toe at the plantar side Neurologic: Alert and oriented ?3, [employer] is normal as tested, no gross motor deficit Course Vital Signs Vital signs: Vital Signs Temperature 36.6 C 04/06/25 10:16 Pulse Rate 86 04/06/25 10:16 Respiratory Rate 16 04/06/25 10:16 Blood Pressure 137/82 04/06/25 10:16 Pulse Oximetry 100 04/06/25 10:16 Oxygen Delivery Room Air 04/06/25 10:16 Temperature 36.6 C 04/06/25 10:16 Pulse Rate 86 04/06/25 10:16 Respiratory Rate 16 04/06/25 10:16 Blood Pressure 137/82 04/06/25 10:16 Pulse Oximetry 100 04/06/25 10:16 Oxygen Delivery Room Air 04/06/25 10:16 MDM - Extremity Injury (Lower) Imaging Data Radiologist's impression: Impressions Foot X-Ray 04/06/25 11:39 IMPRESSION: Joint space narrowing and sclerosis within the first metatarsophalangeal joint space. Degenerative disease, without acute fracture. Critical Care Time Critical Care Time Critical Care Time: No Discharge Plan Discharge Clinical Impression: Podagra Patient Disposition: Home Condition: Stable Instructions: Gout (ED) Additional Instructions: Return if symptoms are worsening , call your family physician for appointment, take Tylenol as as needed for aches and pain, continue home medications. Keep foot elevated Avoid putting weight on the right foot Avoid wearing tight shoes Patient Language: Niuean Prescriptions: New indomethacin 75 mg capsule, extended release 75 mg PO BID Qty: 10 0RF No Action aspirin [Adult Low Dose Aspirin] 81 mg tablet,delayed release (DR/EC) 81 mg PO DAILY Co C-37-Fdttigy E-Fish Oil 25-150-200 mg-mg-unit capsule 1 cap PO DAILY atorvastatin 80 mg tablet 80 mg PO QHS Qty: 90 3RF lisinopril 20 mg tablet 20 mg PO DAILY Qty: 90 3RF Jardiance 25 mg tablet 25 mg PO DAILY Qty: 90 4RF escitalopram oxalate 10 mg tablet See Rx Instructions .ROUTE .COMPLEX Qty: 90 3RF Dose Instruction: TAKE ONE TABLET BY MOUTH DAILY Rx Instructions: TAKE ONE TABLET BY MOUTH DAILY omeprazole 20 mg capsule,delayed release(DR/EC) 20 mg PO DAILY 30 Days Qty: 30 2RF estradiol 0.01 % (0.1 mg/gram) cream 1 g vaginal 2XW Qty: 42.5 6RF Rx Instructions: apply 1 gram every other day for 2 weeks, then continue using twice weekly thereafter. Mounjaro 7.5 mg/0.5 mL pen injector 7.5 mg subcut WEEKLY Qty: 2 2RF cyclobenzaprine 10 mg tablet 10 mg PO .hs PRN (Reason: muscle spasm) Qty: 14 0RF icosapent ethyl [Vascepa] 1 gram capsule 2 g PO BID Qty: 360 0RF gabapentin 300 mg capsule 300 mg PO QHS Qty: 60 2RF lidocaine 5 % adhesive patch,medicated 1 patch topical DAILY Qty: 30 3RF Rx Instructions: leave on most painful area for up to 12 hrs metformin 500 mg tablet extended release 24 hr 500 mg PO BID Qty: 180 1RF Follow-up/Referrals: UNKNOWN,DOCTOR [Non-Staff] - Stand Alone Forms: Work/School Release IP
[2025-04-06] MEDS: INDOMETHACIN 25 MG CAPSULE 75 MG PO (11:05)
== END 2025-04-06 11:40 | disposition home or self-care (01) ==
PROVIDERS: Emergency Provider Emergency Medicine; PCP Family Medicine
DX: M10.9 Gout, unspecified (principal); E11.9 Type 2 diabetes mellitus without complications; I10 Essential (primary) hypertension; E78.5 Hyperlipidemia, unspecified
CPT/HCPCS: 73630; 99283; A9270

== ENCOUNTER 2025-04-26 08:25 | Outpatient (CLI) | payer OTHER, SELFPAY ==
[2025-04-26 08:51] LABS: Hematocrit 45.9 % (35.0-49.0); Hemoglobin 14.7 g/dL (12.0-15.0); Mean Corpuscular HGB Conc 32.0 g/dL (32-36); Mean Corpuscular Hemoglobin 27.1 pg (27.0-31.0); Mean Corpuscular Volume 84.5 fL (78.0-102.0); Platelet Count Result 262 K/mm3 (150-420); Red Blood Count 5.43 M/mm3 (4.20-5.40); White Blood Count 16.0 K/mm3 (4.8-10.8)
[2025-04-26 09:18] LABS: MALB Creatinine Ratio 21.7 mg/g (0-30)
[2025-04-26 09:41] LABS: Alanine Aminotransferase 19 U/L (6-35); Albumin Level 4.8 g/dL (3.5-5.1); Alkaline Phosphatase 97 U/L (38-126); Anion Gap 13 mmol/L (4-12); Aspartate Amino Transferase 22 U/L (14-36); Bilirubin,Total 0.8 mg/dL (0.2-1.3); Blood Urea Nitrogen 18 mg/dL (7-17); CRP 0.8 mg/dL (<1.0); Calcium 10.3 mg/dL (8.4-10.2); Carbon Dioxide 24 mmol/L (22-30); Chloride 102 mmol/L (98-107); Cholesterol 270 mg/dL (0-200); Estimated Glomerular Filt Rate > 60; Glucose 203 mg/dL (65-110); HDL Direct 34 mg/dL; Iron 67 ug/dL (37-170); Osmolality Calculated 295 mOsm/kg (285-295); Potassium 5.2 mmol/L (3.4-5.0); Sodium 139 mmol/L (137-145); Total Protein 7.7 g/dL (6.3-8.2); Triglycerides > 525 mg/dL (<150); Uric Acid 5.9 mg/dL (2.5-7.5)
[2025-04-26 09:47] LABS: Percent Iron Saturation 23 % (20-50)
[2025-04-26 10:09] LABS: Thyroid Stimulating Hormone 2.290 uIU/mL (0.465-4.680)
[2025-04-26 10:54] LABS: Vitamin B12 285.0 pg/mL (239-931)
[2025-04-28 15:09] LABS: ANA by IFA Rfx Titer/Pattern Negative (.)
== END 2025-04-26 08:26 | disposition home or self-care (01) ==
LOC: CHSLAB 08:26
PROVIDERS: PCP Nurse Practitioner Family; Visit Provider Nurse Practitioner Family
DX: F41.8 Other specified anxiety disorders (principal); I10 Essential (primary) hypertension; E78.5 Hyperlipidemia, unspecified; E78.1 Pure hyperglyceridemia; E11.9 Type 2 diabetes mellitus without complications; Z13.29 Encounter for screening for other suspected endocrine disorder; K76.0 Fatty (change of) liver, not elsewhere classified
CPT/HCPCS: 36415; 80053; 80061; 82043; 82306; 82607; 82746; 83540; 83550; 84443; 84550; 85027; 85652; 86038; 86140

== ENCOUNTER 2025-05-03 08:23 | Outpatient (CLI) | payer OTHER, SELFPAY ==
[2025-05-03 08:40] LABS: Hematocrit 42.2 % (35.0-49.0); Hemoglobin 13.5 g/dL (12.0-15.0); Mean Corpuscular HGB Conc 32.0 g/dL (32-36); Mean Corpuscular Hemoglobin 26.9 pg (27.0-31.0); Mean Corpuscular Volume 84.1 fL (78.0-102.0); Platelet Count Result 273 K/mm3 (150-420); Red Blood Count 5.02 M/mm3 (4.20-5.40); White Blood Count 8.3 K/mm3 (4.8-10.8)
[2025-05-03 09:36] LABS: Anion Gap 11 mmol/L (4-12); Blood Urea Nitrogen 20 mg/dL (7-17); Calcium 9.9 mg/dL (8.4-10.2); Carbon Dioxide 24 mmol/L (22-30); Chloride 105 mmol/L (98-107); Estimated Glomerular Filt Rate > 60; Glucose 144 mg/dL (65-110); Osmolality Calculated 295 mOsm/kg (285-295); Potassium 4.8 mmol/L (3.4-5.0); Sodium 140 mmol/L (137-145)
== END 2025-05-03 08:24 | disposition home or self-care (01) ==
LOC: CHSLAB 08:24
PROVIDERS: PCP Nurse Practitioner Family; Visit Provider Nurse Practitioner Adult Health
DX: E87.5 Hyperkalemia (principal); D72.829 Elevated white blood cell count, unspecified
CPT/HCPCS: 36415; 80048; 85027

== ENCOUNTER 2025-06-23 08:23 | Outpatient (CLI) | payer OTHER, SELFPAY ==
--- NOTE | 2025-06-30 15:52 | WPDHOLTEREM ---
Holter/Event Monitor Holter/Event Monitor Date of procedure: 06/23/25 Holter/Event Procedure: 3-7 Day Holter Monitor Indications: Tachycardia Conclusion: 1. 4 days holter monitor on 06/23/25. 2. Predominant rhythm is sinus rhythm. HR range 61-174 bpm; average HR 80 bpm. 3. There are rare premature supraventricular complexes, rare supraventricular couplets, and rare supraventricular triplets. There are 2 episodes of supraventricular tachycardia with fastest at 174 bpm and longest lasting 10 beats. 4. There are rare premature ventricular complexes. No ventricular tachycardia. 5. No significant pauses greater than 3 seconds. 6. Patient reports 8 episodes of symptoms of chest pain, lightheadedness which demonstrate sinus rhythm, HR range 76-85 bpm.
== END 2025-06-23 08:24 | disposition home or self-care (01) ==
PROVIDERS: PCP Family Medicine; Visit Provider Family Medicine
DX: R00.0 Tachycardia, unspecified (principal)
CPT/HCPCS: 93246

== ENCOUNTER 2025-07-18 12:57 | Outpatient (CLI) | payer OTHER, SELFPAY ==
--- NOTE | 2025-07-18 13:08 | ECHO_ITS ---
Patient Info Name: Nandini Lehman Age: 65 years : 1960 Gender: Female Ht: 63 in Wt: 143 lbs BSA: 1.71 m2 HR: 77 bpm BP: 132 / 82 mmHg Technical Quality: Good Exam Date: 07/18/2025 1:08 PM Patient Status: O Admit Date: 07/18/2025 Exam Type: CA echo doppler color flow Complete two-dimensional, color flow and Doppler transthoracic echocardiogram is performed. Track Service Person: Griffin Whitfield III Attending Provider: Kaia Alas Summary 1. Complete two-dimensional, color flow and Doppler transthoracic echocardiogram is performed. 2. Left ventricular chamber dimension is normal. 3. Left ventricular systolic function is normal, estimated at 60-65. 4. There is mild concentric increased left ventricular wall thickness. 5. The left ventricular diastolic function is grade I diastolic dysfunction. 6. E/e' 6 is not elevated. 7. There is mild aortic valve sclerosis. Left Ventricle E/e' 6 is not elevated. Left ventricular chamber dimension is normal. Left ventricular systolic function is normal, estimated at 60-65. There is mild concentric increased left ventricular wall thickness. The left ventricular diastolic function is grade I diastolic dysfunction. Right Ventricle Right ventricular chamber dimension is normal. Right ventricular systolic function is normal and with normal TAPSE 2.0 cm. Left Atria Left atrial chamber dimension is normal. Right Atria Right atrial chamber dimension is normal. Aortic Valve The aortic valve is trileaflet. There is mild aortic valve sclerosis. There is no aortic valve stenosis. There is no aortic valve regurgitation. Pulmonic Valve There is no pulmonic regurgitation. Mitral Valve There is no mitral valve stenosis. There is no mitral valve regurgitation. Tricuspid Valve There is no tricuspid valve regurgitation. Pericardium/Pleural There is no pericardial effusion. Inferior Vena Cava Normal inferior vena cava with >50% collapse upon inspiration consistent with normal right atrial pressure, 5 mmHg. Aorta The aortic root size at the sinus of Valsalva is normal. Left Ventricular Outflow Tract Name Value Normal LVOT 2D LVOT Diameter 2.2 cm LVOT Doppler LVOT Peak Velocity 132 cm/s LVOT Peak Gradient 7 mmHg LVOT Mean Gradient 3 mmHg LVOT VTI 25 cm LVOT VTI/AV VTI Ratio 0.8 LVOT Stroke Volume 92 ml LVOT CO 7.3 l/min LVOT CI 4.3 l/min/m2 Pulmonic Valve Name Value Normal PV Doppler PV Peak Velocity 94 cm/s PV Peak Gradient 4 mmHg PV Mean Gradient 2 mmHg Mitral Valve Name Value Normal MV Doppler MV Peak Gradient 4 mmHg MV Mean Gradient 2 mmHg MV Area (Cont Eq VTI) 4.5 cm2 MV Diastolic Function MV E Peak Velocity 59 cm/s MV A Peak Velocity 80 cm/s MV E/A 0.7 MV Decel Time (PW) 313 ms MV Annular TDI MV E/e' (Septal) 9.1 MV E/e' (Lateral) 5.1 MV E/e' (Average) 7.1 Tricuspid Valve Name Value Normal Estimated PAP/RSVP RA Pressure 5 mmHg <=5 TV Annular TDI TV Lateral Mervat s' Velocity 13.3 cm/s >=9.5 Aortic Valve Name Value Normal AV Doppler AV Peak Velocity 170 cm/s AV Peak Gradient 12 mmHg AV Mean Gradient 7 mmHg AV VTI 30 cm AV Area (Cont Eq VTI) 3.1 cm2 >=3.0 AV Area (Cont Eq Dustin) 2.9 cm2 AV DI (Dustin) 0.78 AV Regurgitation 2D LVOT Area 3.7 cm2 Ventricles Name Value Normal LV Dimensions 2D/MM IVS Diastolic Thickness (2D) 0.9 cm 0.6-1.0 LVID Diastole (2D) 3.0 cm 3.8-5.2 LVIW Diastolic Thickness (2D) 0.9 cm 0.6-0.9 LVID Systole (2D) 2.0 cm 2.2-3.5 LVOT Diameter 2.2 cm LV Mass (2D Cubed) 70.32 g 67.00-162.00 LV Mass Index (2D Cubed) 41 g/m2 43-95 Relative Wall Thickness (2D) 0.61 <=0.42 LV Fractional Shortening/Ejection Fraction 2D/MM LV Fractional Shortening (2D) 32 % 27-45 LV EF (2D Teichholz) 62 % LV Diastolic Volume (4C MOD) 45 ml LV EF (4C MOD) 69 % LV Diastolic Volume (2C MOD) 28 ml LV EF (2C MOD) 53 % LV Diastolic Volume (BP MOD) 37 ml 46-106 LV Diastolic Volume Index (BP MOD) 21 ml/m2 29-61 LV Systolic Volume (BP MOD) 14 ml 14-42 LV Systolic Volume Index (BP MOD) 8 ml/m2 8-24 LV EF (BP MOD) 62 % 54-74 LV Diastolic Length (4C) 7.2 cm LV Systolic Length (4C) 5.5 cm LV Stroke Volume (4C MOD) 31 ml Atria Name Value Normal LA Dimensions LA Volume (4C A-L) 26 ml LA Volume (BP A-L) 28 ml RA Dimensions RA Systolic Major Jackson Length (4C) 4.4 cm 2.2-2.8 RA Area (4C) 10.4 cm2 <=18.0 Report Signatures
== END 2025-07-18 12:58 | disposition home or self-care (01) ==
PROVIDERS: PCP Family Medicine; Visit Provider Nurse Practitioner Family
DX: R00.0 Tachycardia, unspecified (principal); E78.1 Pure hyperglyceridemia; I35.8 Other nonrheumatic aortic valve disorders; I50.30 Unspecified diastolic (congestive) heart failure; I11.0 Hypertensive heart disease with heart failure
CPT/HCPCS: 93306